=== PATIENT | female | born 1970 | race Caucasian/White ===

== ENCOUNTER 2021-09-12 10:59 | Emergency (ER) | payer OTHER, MEDICAID, SELFPAY ==
--- NOTE | ~2021-09-12 | XR_ITS ---
EXAMINATION: XR chest 2V CLINICAL INFORMATION: Cough COMPARISON: No prior chest x-ray available in our system for comparison at the time of this dictation. TECHNIQUE: XR chest 2V Lungs and Jaki: Mild opacification at left lung base concerning for possible patchy interstitial infiltrates. Pleura: Normal. Costophrenic angles are sharp. No pneumothorax. Heart: The heart is normal in size. Mediastinum: The mediastinum is within normal limits.. Bones: Skeletal structures included are normal for patient's age. XR/XR chest 2V IMPRESSION: Probably mild interstitial patchy infiltrate at left lung base. Clinical correlation and follow-up recommended to ensure complete clearance.
[2021-09-12 11:16] VITALS: BP 149/85; PULSE 113; RESP 18; TEMP 36.8; O2SAT 96; BMI 47.2
--- NOTE | 2021-09-12 11:51 | ED.GENADULT ---
HPI - General Adult General Chief complaint: Upper Respiratory Symptoms Stated complaint: COUGH Time Seen by Provider: 09/12/21 11:37 Source: patient Limitations: no limitations History of Present Illness HPI narrative: Patient presents the ER with 2 week history of cough and congestion. Patient has had negative COVID test at home. Patient is fully vaccinated but not boosted. Patient also states she feels like her ears are blocked. Patient states she has lost her voice and has a slight scratchy throat but does not hurt to swallow. Patient states she has a history of thyroid disease which she takes levothyroxine for. Patient denies nausea vomiting fever chills. Patient states cough is nonproductive at this time. Related Data Previous Rx's Medication Instructions Recorded azithromycin 250 mg tablet 250 mg PO DAILY #4 tab 09/12/21 (Zithromax) benzonatate 100 mg capsule 100 mg PO TID PRN #12 cap 09/12/21 Allergies Allergy/AdvReac Type Severity Reaction Status Date / Time No Known Allergies Allergy Unverified 03/29/20 14:51 Review of Systems Constitutional: Constitutional: Denies anorexia, Reports body ache(s), Denies chills, Denies headache(s) and Denies weight gain ENT: Denies headache(s), Reports nasal congestion and Denies sore throat Comments: Ear feels full Cardiovascular: Cardiovascular: Denies chest pain and Denies dyspnea Respiratory: Respiratory: Denies chest congestion, Reports cough, Denies hemoptysis, Denies excessive phlegm production, Denies pain with cough and Denies dyspnea Gastrointestinal: Gastrointestinal: Denies diarrhea, Denies nausea and Denies vomiting Musculoskeletal: Musculoskeletal: Denies back pain and Reports myalgias Neurologic: Denies headache(s) [facility] Past Medical History Attestation statement: The following information was validated with the patient. Medical History Breast CA Cancer Social History Social History Patient Tobacco Use Status: Never used Tobacco Use of substances other than those prescribed or required for medical reasons: No Advance Directives: No Advance Directives Information Provided: Yes Physical Exam ED Vital Signs: Vital Signs - 24 hr 09/12/21 11:16 09/12/21 12:46 09/12/21 13:14 Temperature 98.3 F 97.8 F Pulse Rate 113 H 112 H 111 H Respiratory Rate 18 20 22 H Blood Pressure 149/85 H 153/87 H 133/76 Pulse Oximetry 96 92 97 BMI result Body Mass Index 47.2 vital signs have been reviewed as normal and appeared to be correct. Blood pressure normal. Heart rate normal. Respiration rate normal. Temperature normal. Oxygen saturation normal. Appearance: Alert. Oriented X3. No acute distress. Head: Normal external exam. Normocephalic. Atraumatic. Eyes: PERRLA. EOMI. Conjunctiva and sclera normal. Eyelids normal. ENT: No obvious pharyngeal erythema seen no exudate no evidence of peritonsillar abscess bilateral ears are clear TMs sharp. Neck: Soft full range of motion CVS: Heart regular rate and rhythm no murmurs and rubs Respiratory: Breath sounds slightly diminished no accessory muscle use Abdomen: Obese soft no rebound or guarding Back: Full range of motion noted. Skin: Skin warm and dry no rashes noted. Extremities: Patient is ambulatory with her walker full range of motion of upper and lower extremities Neuro: Oriented X 3. No motor deficit. No sensory deficit. Reflexes normal. Course Course Course Narrative: Influenza COVID-19 Viral URI Pharyngitis Otitis media Laryngitis Acute bronchitis COVID-19 influenza swab obtained chest x-ray pending 12:41 influenza a and B swabs were negative also COVID-19 symptoms more consistent with viral URIs such as bronchitis laryngitis versus pneumonia 13:09 chest x-ray positive for pneumonia will treat 500 mg Zithromax p.o. at this time Medical Decision Making Lab Data Labs: Lab Results 09/12/21 09/12/21 Range/Units 11:58 11:58 COVID-19 (RHONDA) Negative (Negative) COVID-19 Clin Com See Note Influenza Type A (JENNIE) Negative (Negative) Influenza Type B (JENNIE) Negative (Negative) Influenza A & B Note See Note Imaging Data Chest x-ray: Radiologist's impression: [address] [address] XRay Report Signed Patient: Mariama Farah MR#: [id number] : 1970 Acct:[id number] Age/Sex: 51 / F ADM Date: 09/12/21 Loc: HO.ED Attending Dr: Ordering Physician: Jenny Sarkar DO Date of Service: 09/12/21 Procedure(s): XR chest 2V Accession Number(s): [id number] cc: Jenny Sarkar DO~ EXAMINATION: XR chest 2V CLINICAL INFORMATION: Cough COMPARISON: No prior chest x-ray available in our system for comparison at the time of this dictation.? TECHNIQUE: XR chest 2V Lungs and Jaki: Mild opacification at left lung base concerning for possible patchy interstitial infiltrates. Pleura: Normal. Costophrenic angles are sharp. No pneumothorax. Heart: The heart is normal in size. Mediastinum: The mediastinum is within normal limits.. Bones: Skeletal structures included are normal for patient's age. XR/XR chest 2V IMPRESSION: Probably mild interstitial patchy infiltrate at left lung base. Clinical correlation and follow-up recommended to ensure complete clearance. Dictated By: HEATHER NOLAN MD Signed By: <Electronically signed by HEATHER NOLAN MD in OV> 09/12/21 1251 DD/ 1147 TD/TT:? Xray Tech: Discharge Plan Discharge Clinical Impression: Left lower lobe pneumonia Patient Disposition: Home, Self-Care Instructions: Community Acquired Pneumonia (ED) Additional Instructions: Antibiotics as directed your 1st dose was given today will start your 2nd dose tomorrow Increase fluids rest close follow-up to PCP is recommended Return if symptoms worsen Prescriptions: New azithromycin [Zithromax] 250 mg tablet 250 mg PO DAILY Qty: 4 0RF Rx Instructions: Started 09/13/2021 benzonatate 100 mg capsule 100 mg PO TID PRN (Reason: cough) Qty: 12 0RF
[2021-09-12 12:31] LABS: COVID-19 Test Negative (Negative)
[2021-09-12 12:32] LABS: IDNOW Serial# 08D9AD1C; Influenza A Negative (Negative); Influenza B2 Negative (Negative)
--- NOTE | 2021-09-12 12:42 | PC.NURSE ---
Pt a&o, being seen for cold like symptoms. Labs collected per order. no sign of respiratory distress at this time. Provider in to discuss plan of care. Will continue to monitor.
[2021-09-12 12:46] VITALS: BP 153/87; PULSE 112; RESP 20; TEMP 36.6; O2SAT 92
[2021-09-12 13:14] VITALS: BP 133/76; PULSE 111; RESP 22; O2SAT 97
[2021-09-12] MEDS: Azithromycin 500 MG TABLET PO (13:27)
[2021-09-12 13:29] VITALS: O2SAT 97
== END 2021-09-12 13:31 | disposition home or self-care (01) ==
PROVIDERS: Emergency Provider Emergency Medicine
DX: J18.1 Lobar pneumonia, unspecified organism (principal); Z20.822 Contact with and (suspected) exposure to COVID-19; Z85.3 Personal history of malignant neoplasm of breast
CPT/HCPCS: 71046; 87502; 87635; 99283; 99284